=== PATIENT | female | born 2000 | race Asian ===

== ENCOUNTER 2025-02-09 09:39 | Inpatient (IN) ==
--- NOTE | 2025-02-09 10:23 | Emergency Department Note ---
Impression & Plan Hemoperitoneum, Hemorrhagic cyst of left ovary, Abdominal pain, Chest pain, Acute dyspnea ED Provider Note CHIEF COMPLAINT: Chest and abdominal pain HISTORY OF PRESENT ILLNESS: This 24-year-old female patient presents to the emergency department via ambulance for evaluation of chest and abdominal pain. The patient states she developed some upper abdominal pain last night before bed. She states she woke up this morning and went to class, generally feeling okay. While in class, she developed sudden onset of severe bilateral chest pain and difficulty breathing. The patient states the abdominal pain worsened. She then developed lightheadedness and dizziness and states her vision and hearing were going. She states she sat down on the ground and waited for the episode to pass, but asked her professor to call EMS, as she was still feeling unwell. [place] She states she is not currently on OCPs. She did take a Plan B about a week ago. Last menstrual period was 2 weeks ago. She states she thought the abdominal pain yesterday was similar nature to what she may experience prior to experiencing a menstrual period. She has not taken any medication for her symptoms. She denies any fever. No vomiting. No diarrhea or constipation. No abnormal vaginal bleeding or discharge. No urinary symptoms. No cough or recent upper respiratory infection. No leg pain or swelling. No history of DVT or PE. Patient states her pain is worse with lying flat and seems to improve with sitting upright. She states the pain is in the area of her ribs. History provided by: Patient REVIEW OF SYSTEMS: A 10 system review of systems was performed with positives and pertinent negatives listed in the history of present illness. All other systems were reviewed and are negative. ALLERGIES: NKDA PHYSICAL EXAM: VITALS: Vitals are noted on the nurse's note and reviewed by myself. GENERAL: This is a 24-year-old female, in no acute distress, nondiaphoretic, well-developed well-nourished. SKIN: The skin was without rashes, erythema, edema, or bruising. There is no tenting of the skin. Capillary refill less than 2 seconds. HEAD: Normocephalic atraumatic. EARS: External auditory canals clear, tympanic membranes pearly alexander without erythema or effusion bilaterally. No hemotympanum. Negative romero sign EYES: Pupils equal round and reactive to light and accommodation. Conjunctivae without injection, sclerae without icterus. Extraocular movements intact. NOSE: Patent, turbinates without inflammation or discharge. No sinus tenderness. MOUTH: Mucous membranes moist. Tonsils are not enlarged. Pharynx without erythema or exudate. Uvula midline. Airway patent. Tongue does not deviate. NECK: Supple without nuchal rigidity. No lymphadenopathy. Cervical spine is nontender. No JVD. CHEST: Exquisite tenderness to light palpation of the entire anterior and lateral chest wall and upper abdomen. Pt. unable to tolerate lying in a flat position for abdominal examination due to significant pain in her chest. HEART: Regular rate and rhythm without murmurs gallops or rubs. LUNGS: Clear to auscultation bilaterally without wheezes, rales or rhonchi. No retractions or accessory muscle use. ABDOMEN: Positive bowel sounds x 4. Soft, nontender, without masses or organomegaly. Deal sign negative. No guarding or rebound tenderness. MUSCULOSKELETAL: No muscle atrophy, erythema, or edema noted. Full range of motion without joint tenderness in all extremities. No tenderness to palpation. Normal gait. Strength 5/5 throughout. NEURO: Patient was alert and oriented to person place and time. No focal neurological deficits. An order was placed for continuous shingle trimmer. The monitor showed a normal sinus rhythm at a ventricular rate of 73 bpm, per my interpretation. EKG was reviewed by myself and found to be normal sinus rhythm at a rate of 80 beats per minute and per my interpretation reveals no ST elevation or depression. No T wave inversion. No prior EKG available for comparison. Imaging as interpreted by myself and the radiologist revealed moderate hemoperitoneum secondary to a ruptured hemorrhagic left ovarian cyst with active extravasation and approximately 9 x 4 cm hematoma in the pelvis, with radiologist interpretation as above. I agree with the radiologist's findings as based upon my independent interpretation. EMERGENCY DEPARTMENT COURSE: The patient was evaluated as above. The patient presents to the emergency department by ambulance due to chest and abdominal pain. The patient states that today in class, she had chest pain, shortness of breath, and presyncopal episode. Upon arrival to the emergency department, the patient is unable to get comfortable. She is complaining of severe pain in her chest and abdomen, worse when lying flat. [place] She states that she has not had history of DVT or PE. She did take Plan B about a week ago. IV access was obtained, labs were drawn. Patient was hydrated with IV fluids and medicated with acetaminophen. She was medicated with Zofran for nausea. Chest x-ray was completed and was negative for acute abnormality. Urine test is negative. CT angiogram of the chest and CT scan of the abdomen/pelvis was completed and reviewed by myself and radiologist as noted. CT scans are concerning for a ruptured left ovarian cyst with active extravasation and large hematoma in the pelvis. Labs reviewed. Per my interpretation, anemia with a hemoglobin of 11.0 and hematocrit of 32.3. No thrombocytopenia. Coags unremarkable. Renal, hepatic function and electrolytes without significant abnormality. Troponin less than 2.3. Lipase is 12. hCG is negative. Urinalysis appears contaminated. Urine drug screen is positive for MDMA. I discussed the case with Dr. Rosario, POPULATION GENETICIST on-call. She did evaluate the patient at the bedside. The patient continues to be very tender and peritonitic. She is unable to lie flat due to the pain and pressure sensation. She provided the patient with options to go to the operating room at this time versus a watch and wait approach and repeating the H&H. The patient would prefer to hold off at this time and have repeat labs drawn. Unfortunately, there was a delay of about 2 hours in obtaining the repeat labs. Repeat hemoglobin was 9.1. I did evaluate the patient again. Pt. is unable to tolerate any abdominal examination. Unable to lie flat due to severe pain. BP is now 103 systolic. I again discussed the case with Dr. Rosario. I updated her on the repeat labs, patient condition, as well as the blood pressure. She will be down to reevaluate the patient. Please see her dictation regarding final disposition and plan at this time. This visit is during a period of high volume and high acuity in the emergency department. I attest that I have personally reviewed the patient medication list. I attest that I have reviewed the patient's blood pressure and it was found to be normal GCS: 15 In the evaluation and treatment of this patient the following differential diagnoses were entertained: Cardiac ischemia, aortic dissection, pulmonary embolism, pneumothorax, pneumonia, pericarditis, myocarditis, esophageal rupture, GERD, cholecystitis, pancreatitis, musculoskeletal, as well as other pathologies. The chart was completed utilizing [employer] voice recognition software. Grammatical errors, random word insertions, pronoun errors, and incomplete sentences are an occasional consequence of this system due to software limitations, ambient noise, and hardware issues. Any formal questions or concerns about the content, text, or information contained within the body of this dictation should be directly addressed to the provider for clarification. Past Med/Surg History Problem List (Updated 02/09/25 @ 16:18 by Nichole Nation PA-C) Acute dyspnea (Acute) Chest pain (Acute) Hemorrhagic cyst of left ovary (Acute) Hemoperitoneum (Acute) Abdominal pain (Acute) Medical History No pertinent past medical history Social History Smoking Status: Current every day smoker Tobacco Type: E-cigarettes / Vaping Preferred Language: Syriac Feels Safe at Home: Yes Allergies Allergies Allergy/AdvReac Type Severity Reaction Status Date / Time No Known Allergies Allergy Unverified 02/09/25 14:54 Home Meds Home Medications Medication Instructions Recorded Confirmed No Known Home Medications 02/09/25 02/09/25 Results & Data (ED) Vital Signs Vital Signs - 24 hr 02/09/25 09:50 02/09/25 10:00 02/09/25 10:19 Temperature 36.5 C Temperature Source Oral Pulse Rate 64 73 Pulse Rate [Left Apical] Pulse Rate from SpO2 Sensor Pulse Rhythm Regular Pulse Strength Normal Respiratory Rate 24 Respiratory Effort / Characteristics Non-Labored Spontaneous Respiratory Depth Normal Respiratory Pattern Regular Blood Pressure 112/64 Blood Pressure [Right Arm] Blood Pressure Mean 80 Blood Pressure Mean [Right Arm] Blood Pressure Position Semi-fowlers Pulse Oximetry 98 100 Oxygen Delivery Method Room Air Room Air Sepsis Recent Fever Within 48 Hours No Sepsis New/Unexplained Change in Mental Status No Sepsis Action Taken by Nursing No Action Required 02/09/25 11:51 02/09/25 13:12 02/09/25 14:00 Temperature Temperature Source Pulse Rate 66 75 75 Pulse Rate [Left Apical] Pulse Rate from SpO2 Sensor 76 Pulse Rhythm Pulse Strength Respiratory Rate 19 24 Respiratory Effort / Characteristics Respiratory Depth Respiratory Pattern Blood Pressure 116/77 118/65 Blood Pressure [Right Arm] Blood Pressure Mean 90 82 Blood Pressure Mean [Right Arm] Blood Pressure Position Pulse Oximetry 100 100 Oxygen Delivery Method Room Air Room Air Sepsis Recent Fever Within 48 Hours Sepsis New/Unexplained Change in Mental Status Sepsis Action Taken by Nursing 02/09/25 14:42 02/09/25 15:49 Temperature Temperature Source Pulse Rate 64 Pulse Rate [Left Apical] 69 Pulse Rate from SpO2 Sensor Pulse Rhythm Pulse Strength Respiratory Rate 22 18 Respiratory Effort / Characteristics Non-Labored Spontaneous Respiratory Depth Normal Respiratory Pattern Blood Pressure 109/71 Blood Pressure [Right Arm] 109/63 Blood Pressure Mean 83 Blood Pressure Mean [Right Arm] 78 Blood Pressure Position Pulse Oximetry 99 100 Oxygen Delivery Method Room Air Room Air Sepsis Recent Fever Within 48 Hours Sepsis New/Unexplained Change in Mental Status Sepsis Action Taken by Nursing Laboratory Data 02/09/25 14:54 02/09/25 10:58 Lab Results 02/09/25 02/09/25 02/09/25 Range/Units 10:24 10:40 10:58 WBC 8.31 (4.8-10.8) K/ul RBC 3.37 L (4.20-5.40) M/uL Hgb 11.0 L (12.0-16.0) g/dl POC Hgb 12.6 (12.0-16.0) g/dl Hct 32.3 L (37.0-47.0) % POC Hct 37 (37-47) % MCV 95.8 (80.0-100.0) fL MCH 32.6 (25.0-34.0) pg MCHC 34.1 (32.0-36.0) g/dL RDW Std Deviation 45.5 (36.4-46.3) fL RDW Coeff of Capri 12.9 (11.5-14.5) % Plt Count 161 (130-400) K/uL MPV 11.0 (9.4-12.4) fL Immature Gran % (Auto) 0.4 % Neut % (Auto) 79.9 % Lymph % (Auto) 12.2 % Ellis % (Auto) 6.7 % Eos % (Auto) 0.6 % Baso % (Auto) 0.2 % Neut # (Auto) 6.64 H (1.40-6.50) K/uL Lymph # (Auto) 1.01 L (1.20-3.40) K/uL Ellis # (Auto) 0.56 (0.11-0.59) K/uL Eos # (Auto) 0.05 (0.00-0.50) K/uL Baso # (Auto) 0.02 (0.00-0.20) K/uL Immature Gran # (Auto) 0.03 (0.01-0.20) K/uL PT 11.3 (9.0-12.0) Seconds INR 1.1 (0.9-1.1) APTT 23 (21-31) Seconds PTT Ratio 0.8 POC Sodium 139 (135-144) mmol/L Sodium 137 (136-145) mmol/L POC Potassium 3.7 (3.3-5.0) mmol/L Potassium 3.6 (3.5-5.1) mmol/L POC Chloride 108 (101-112) mmol/L Chloride 107 (98-107) mmol/L Carbon Dioxide 23 (21-32) mmol/L POC Total CO2 22 L (24-31) mmol/L Anion Gap 7 (3-11) POC Anion Gap 14.0 L (16-25) mmol/L POC BUN 14 (7-18) mg/dl BUN 13 (6-23) mg/dl Creatinine 0.63 (0.6-1.2) mg/dl POC Creatinine 0.7 (0.6-1.3) mg/dl Est Cr Clr Drug Dosing 115.6 ml/min eGFR 128.55 BUN/Creatinine Ratio 20.6 H (10-20) Glucose 97 (70-99(Fasting)) mg/dl POC Glucose (other) 114 H (70-99) mg/dl Calcium 8.6 (8.6-10.3) mg/dl POC Ioniz Calcium Christin 1.18 (1.12-1.32) mmol/l Total Bilirubin 1.8 H (0.2-1.0) mg/dl AST 16 (13-39) U/L ALT 15 (7-52) U/L Alkaline Phosphatase 45 (34-104) U/L Troponin I High Sens < 2.3 (0-14) pg/ml Total Protein 6.5 (6.0-8.3) gm/dl Albumin 3.8 (3.4-5.0) gm/dl Globulin 2.7 (2.5-4.0) gm/dl Albumin/Globulin Ratio 1.4 (0.9-2) Lipase 12 (11-82) U/L HCG, Qual Negative (Negative) Urine Color Dark Yellow Urine Appearance Cloudy A (Clear) Urine pH 5.5 (4.5-7.5) Ur Specific Melvin 1.039 H (1.000-1.030) Urine Protein 1+ H (Negative) Urine Glucose (UA) Negative (Negative) Urine Ketones 1+ H (Negative) Urine Blood Negative (Negative) Urine Nitrite Negative (Negative) Urine Bilirubin 1+ H (Negative) Urine Urobilinogen Negative (Negative) Ur Leukocyte Esterase Trace H (Negative) Urine WBC (Auto) 6-10 H (0-5) /hpf Urine RBC (Auto) 0-2 (0-2) /hpf U Hyaline Cast (Auto) 3-5 H (0-2) /lpf U Epithel Cells (Auto) 6-10 H (0-2) /hpf Urine Bacteria (Auto) 1+ H (None Seen) Calcium Oxalate Crystal Present A (None Prsent) Urine Mucus Present A (None Prsent) POC Ur Test (NEG) Urine Comment Urine Opiates Screen Neg (Neg) Ur Methadone, Qual Neg (Neg) Urine Fentanyl Screen Neg (Neg) Urine Barbiturates Neg (Neg) Ur Phencyclidine (PCP) Neg (Neg) U Amphetamin/Meth Scrn Neg (Neg) MDMA (Ecstasy) Screen Pos H (Neg) U Benzodiazepines Scrn Neg (Neg) Ur Cocaine Metabolite Neg (Neg) U Marijuana (THC) Screen Neg (Neg) Blood Type Antibody Screen 02/09/25 02/09/25 02/09/25 Range/Units 11:22 12:38 14:54 WBC 8.58 (4.8-10.8) K/ul RBC 2.91 L (4.20-5.40) M/uL Hgb 9.1 L (12.0-16.0) g/dl POC Hgb (12.0-16.0) g/dl Hct 28.0 L (37.0-47.0) % POC Hct (37-47) % MCV 96.2 (80.0-100.0) fL MCH 31.3 (25.0-34.0) pg MCHC 32.5 (32.0-36.0) g/dL RDW Std Deviation 45.9 (36.4-46.3) fL RDW Coeff of Capri 13.1 (11.5-14.5) % Plt Count 147 (130-400) K/uL MPV 10.6 (9.4-12.4) fL Immature Gran % (Auto) 0.5 % Neut % (Auto) 78.1 % Lymph % (Auto) 16.0 % Ellis % (Auto) 4.8 % Eos % (Auto) 0.3 % Baso % (Auto) 0.3 % Neut # (Auto) 6.70 H (1.40-6.50) K/uL Lymph # (Auto) 1.37 (1.20-3.40) K/uL Ellis # (Auto) 0.41 (0.11-0.59) K/uL Eos # (Auto) 0.03 (0.00-0.50) K/uL Baso # (Auto) 0.03 (0.00-0.20) K/uL Immature Gran # (Auto) 0.04 (0.01-0.20) K/uL PT (9.0-12.0) Seconds INR (0.9-1.1) APTT (21-31) Seconds PTT Ratio POC Sodium (135-144) mmol/L Sodium (136-145) mmol/L POC Potassium (3.3-5.0) mmol/L Potassium (3.5-5.1) mmol/L POC Chloride (101-112) mmol/L Chloride (98-107) mmol/L Carbon Dioxide (21-32) mmol/L POC Total CO2 (24-31) mmol/L Anion Gap (3-11) POC Anion Gap (16-25) mmol/L POC BUN (7-18) mg/dl BUN (6-23) mg/dl Creatinine (0.6-1.2) mg/dl POC Creatinine (0.6-1.3) mg/dl Est Cr Clr Drug Dosing ml/min eGFR BUN/Creatinine Ratio (10-20) Glucose (70-99(Fasting)) mg/dl POC Glucose (other) (70-99) mg/dl Calcium (8.6-10.3) mg/dl POC Ioniz Calcium Christin (1.12-1.32) mmol/l Total Bilirubin (0.2-1.0) mg/dl AST (13-39) U/L ALT (7-52) U/L Alkaline Phosphatase (34-104) U/L Troponin I High Sens (0-14) pg/ml Total Protein (6.0-8.3) gm/dl Albumin (3.4-5.0) gm/dl Globulin (2.5-4.0) gm/dl Albumin/Globulin Ratio (0.9-2) Lipase (11-82) U/L HCG, Qual (Negative) Urine Color Urine Appearance (Clear) Urine pH (4.5-7.5) Ur Specific Melvin (1.000-1.030) Urine Protein (Negative) Urine Glucose (UA) (Negative) Urine Ketones (Negative) Urine Blood (Negative) Urine Nitrite (Negative) Urine Bilirubin (Negative) Urine Urobilinogen (Negative) Ur Leukocyte Esterase (Negative) Urine WBC (Auto) (0-5) /hpf Urine RBC (Auto) (0-2) /hpf U Hyaline Cast (Auto) (0-2) /lpf U Epithel Cells (Auto) (0-2) /hpf Urine Bacteria (Auto) (None Seen) Calcium Oxalate Crystal (None Prsent) Urine Mucus (None Prsent) POC Ur Test NEG (NEG) Urine Comment Urine Opiates Screen (Neg) Ur Methadone, Qual (Neg) Urine Fentanyl Screen (Neg) Urine Barbiturates (Neg) Ur Phencyclidine (PCP) (Neg) U Amphetamin/Meth Scrn (Neg) MDMA (Ecstasy) Screen (Neg) U Benzodiazepines Scrn (Neg) Ur Cocaine Metabolite (Neg) U Marijuana (THC) Screen (Neg) Blood Type A Positive Antibody Screen NEGATIVE Administered Medications Discontinued Medications Sodium Chloride (Nss) 1,000 mls @ 999 mls/hr IV .Q1H1M STA Stop: 02/09/25 11:14 Last Infusion: 02/09/25 11:28 Dose: Infused Documented By: Admin: 02/09/25 10:26 Dose: 999 mls/hr Documented By: Acetaminophen (Ofirmev) 1,000 mg in 100 mls @ 400 mls/hr IV NOW STA Stop: 02/09/25 10:28 Last Infusion: 02/09/25 11:28 Dose: Infused Documented By: Admin: 02/09/25 10:26 Dose: 400 mls/hr Documented By: MSG Ioversol (Optiray 320 125ml) 119 ml IV ONCE ONE Stop: 02/09/25 11:18 Last Admin: 02/09/25 11:17 Dose: 119 ml Documented By: NELLIE Ketorolac Tromethamine (Ketorolac 30 Mg/Ml Vial) 30 mg IV NOW STA Stop: 02/09/25 11:33 Last Admin: 02/09/25 11:50 Dose: 30 mg Documented By: MSG Morphine Sulfate (Morphine Sulfate 2 Mg/Ml Carp) 2 mg IV NOW STA Stop: 02/09/25 12:49 Last Admin: 02/09/25 13:07 Dose: 2 mg Documented By: MSG Ondansetron HCl (Ondansetron Inj 2 Mg/Ml 2 Ml Vial) 4 mg IV NOW STA Stop: 02/09/25 10:15 Last Admin: 02/09/25 10:26 Dose: 4 mg Documented By: MSG Imaging Data Radiologist's Impression: Chest X-Ray 02/09/25 10:14 XR chest 1V portable CLINICAL HISTORY: dyspnea, chest pain COMPARISON STUDY: None FINDINGS: Heart size and pulmonary vasculature are normal. No consolidation or pleural effusion. No pneumothorax. IMPRESSION: No acute findings. ACT 112: Negative or not required by law. Electronically signed by: Mac Claudio M.D. 02/09/2025 11:01 AM Abdomen/Pelvis CT 02/09/25 10:46 CT SCAN OF THE ABDOMEN AND PELVIS WITH IV CONTRAST CLINICAL HISTORY: Upper abdominal pain. COMPARISON STUDY: No priors. TECHNIQUE: Following the IV administration of 119 cc of Optiray 320, CT scan of the abdomen and pelvis is performed from the lung bases to the proximal femora. Images are reviewed in the axial, sagittal, and coronal planes. IV contrast was administered without complication. A dose lowering technique was utilized adhering to the principles of ALARA. FINDINGS: Lung bases: The heart is normal in size and without pericardial effusion. There are trace pleural effusions. No airspace consolidation is seen typical for pneumonia. Liver: The contrast-enhanced liver is normal in size, contour, and attenuation. Fatty infiltration is seen adjacent to the falciform ligament. There is no intrahepatic biliary ductal dilatation. The hepatic veins and portal veins are patent. Gallbladder: Unremarkable. Spleen: Normal in size and attenuation. Pancreas: Unremarkable. Adrenal glands: Unremarkable. Kidneys: The contrast enhanced kidneys are normal in size and without hydronephrosis. The kidneys enhance symmetrically. Abdominal vasculature: The abdominal aorta is normal in course and caliber. Bowel: There is mild to moderate colonic fecal retention. No bowel obstruction is seen. The appendix is normal as visualized. Peritoneum: No intraperitoneal free air is seen. There is a moderate volume of hemoperitoneum. Complex fluid in the pelvis is consistent with hematoma/blood products. Lymphadenopathy: None. Pelvic viscera: The bladder and uterus are normal as visualized. There is a 4.3 cm complex cystic lesion in the left adnexa on image [id number]. This shows foci of active extravasation on image #259, and there is large hematoma in the posterior pelvis which measures approximately 9 x 4 cm. Skeletal structures: No lytic or blastic lesions are seen. IMPRESSION: 1. There is a moderate volume of hemoperitoneum secondary to a ruptured hemorrhagic left ovarian cyst as above. 2. There is active extravasation, with an approximately 9 x 4 cm hematoma in the pelvis. 3. Trace pleural effusions. 4. Additional findings as above. ACT 112: Negative or not required by law. Electronically signed by: Chivo Munoz M.D. 02/09/2025 11:44 AM Chest CTA 02/09/25 10:46 CT angio chest PE protocol CT DOSE: 713.98 mGy.cm HISTORY: 24 years-old Female with chest pain, dyspnea, recent travel. Acute shortness of breath TECHNIQUE: Multiple CTA images of the chest were obtained after the intravenous administration of 119 ml Optiray. Coronal and sagittal MIPS were obtained from the axial data set and were submitted for review. All measurements were obtained according to NASCET criteria. A dose lowering technique was utilized adhering to the principles of ALARA. COMPARISON: CT abdomen and pelvis of same day FINDINGS: CTA: There is adequate opacification of the pulmonary arteries to the level of the segmental branches without convincing evidence of acute pulmonary embolism. Normal thoracic aorta.Heart size is normal. CT CHEST: No dominant thyroid nodule is seen. Residual thymic tissue in the anterior mediastinum. No pathologically adenopathy by CT size criteria. Trace pleural effusions. No pneumothorax or airspace consolidation. CT abdomen and pelvis dictated separately. Upper abdominal ascites is noted. Unremarkable soft tissues. The osseous structures appear intact. IMPRESSION: 1. No pulmonary emboli identified. 2. Trace pleural effusions with upper abdominal ascites. 3. No airspace consolidation typical for pneumonia. 4. Please refer to the same day CT abdomen and pelvis study for additional findings. ACT 112: Negative or not required by law. The above report was generated using voice recognition software. It may contain grammatical, syntax or spelling errors. Electronically signed by: Beto Garza M.D. 02/09/2025 11:41 AM Discharge Plan Visit Data Chief Complaint: Abdominal Pain Stated Complaint: SOB, R SIDE CHEST PAIN & AB PAIN ED Provider: Kaiden Maher ED Midlevel Provider: Nichole Nation Discharge Problem: Hemoperitoneum, Hemorrhagic cyst of left ovary, Abdominal pain, Chest pain, Acute dyspnea Patient Disposition: Admitted As Inpatient Condition: Fair Forms Stand Alone Forms: Korrio Prescriptions Prescriptions: No Action No Known Home Medications Referrals Referrals: [facility] [Primary Care Provider] -
[2025-02-09] MEDS: SODIUM CHLORIDE 0.9% 1,000 ML IV STA (10:26)
[2025-02-09] MEDS: ONDANSETRON INJ 2 MG/ML 2 ML VIAL IV STA (10:26)
[2025-02-09] MEDS: ACETAMINOPHEN 1,000 MG/100 ML VIAL IV STA (10:26)
--- NOTE | 2025-02-09 11:02 | XRay Report ---
XR chest 1V portable CLINICAL HISTORY: dyspnea, chest pain COMPARISON STUDY: None FINDINGS: Heart size and pulmonary vasculature are normal. No consolidation or pleural effusion. No p neumothorax. IMPRESSION: No acute findings. ACT 112: Negative or not required by law. Electronically signed by: Mac Claudio M.D. 02/09/2025 11:01 AM
[2025-02-09] MEDS: OPTIRAY 320 125ml IV ONE (11:17)
[2025-02-09 11:22] LABS: Appearance Urine Cloudy (Clear); Bacteria Urine Automated 1+ (None Seen); Glucose Urine UA Negative (Negative); RBC Urine Automated 0-2 /hpf (0-2)
[2025-02-09 11:33] LABS: Hematocrit (blood only) 32.3 % (37.0-47.0); Hemoglobin 11.0 g/dl (12.0-16.0); Immature Granulocytes # (auto) 0.03 K/uL (0.01-0.20); Immature Granulocytes % (auto) 0.4 %; Mean Corpuscular Hemoglobin 32.6 pg (25.0-34.0); Mean Corpuscular Volume 95.8 fL (80.0-100.0); Platelet Count 161 K/uL (130-400); RDW Standard Deviation 45.5 fL (36.4-46.3); Red Blood Count 3.37 M/uL (4.20-5.40); White Blood Count 8.31 K/ul (4.8-10.8)
[2025-02-09 11:42] LABS: Pregnancy Test, Serum Negative (Negative)
--- NOTE | 2025-02-09 11:43 | CT Scan Report ---
CT angio chest PE protocol CT DOSE: 713.98 mGy.cm HISTORY: 24 years-old Female with chest pain, dyspnea, recent travel. Acute shortness of breath TECHNIQUE: Multiple CTA images of the chest were obtained after the intravenous administration of 119 ml Optiray. Coronal and sagittal MIPS were obtained from the axial data set and were submitted for review. All measurements were obtained according to NASCET criteria. A dose lowering technique was u tilized adhering to the principles of ALARA. COMPARISON: CT abdomen and pelvis of same day FINDINGS: CTA: There is adequate opacification of the pulmonary arteries to the level of the segmental branches with out convincing evidence of acute pulmonary embolism. Normal thoracic aorta.Heart size is normal. CT CHEST: No dominant thyroid nodule is seen. Residual thymic tissue in the anterior mediastinum. No pathologic ally adenopathy by CT size criteria. Trace pleural effusions. No pneumothorax or airspace consolidat ion. CT abdomen and pelvis dictated separately. Upper abdominal ascites is noted. Unremarkable soft tissu es. The osseous structures appear intact. IMPRESSION: 1. No pulmonary emboli identified. 2. Trace pleural effusions with upper abdominal ascites. 3. No airspace consolidation typical for pneumonia. 4. Please refer to the same day CT abdomen and pelvis study for additional findings. ACT 112: Negative or not required by law. The above report was generated using voice recognition software. It may contain grammatical, syntax o r spelling errors. Electronically signed by: Beto Garza M.D. 02/09/2025 11:41 AM
--- NOTE | 2025-02-09 11:46 | CT Scan Report ---
CT SCAN OF THE ABDOMEN AND PELVIS WITH IV CONTRAST CLINICAL HISTORY: Upper abdominal pain. COMPARISON STUDY: No priors. TECHNIQUE: Following the IV administration of 119 cc of Optiray 320, CT scan of the abdomen and pelv is is performed from the lung bases to the proximal femora. Images are reviewed in the axial, sagitta l, and coronal planes. IV contrast was administered without complication. A dose lowering technique w as utilized adhering to the principles of ALARA. FINDINGS: Lung bases: The heart is normal in size and without pericardial effusion. There are trace pleural eff usions. No airspace consolidation is seen typical for pneumonia. Liver: The contrast-enhanced liver is normal in size, contour, and attenuation. Fatty infiltration is seen adjacent to the falciform ligament. There is no intrahepatic biliary ductal dilatation. The hep atic veins and portal veins are patent. Gallbladder: Unremarkable. Spleen: Normal in size and attenuation. Pancreas: Unremarkable. Adrenal glands: Unremarkable. Kidneys: The contrast enhanced kidneys are normal in size and without hydronephrosis. The kidneys enh ance symmetrically. Abdominal vasculature: The abdominal aorta is normal in course and caliber. Bowel: There is mild to moderate colonic fecal retention. No bowel obstruction is seen. The appendix is normal as visualized. Peritoneum: No intraperitoneal free air is seen. There is a moderate volume of hemoperitoneum. Comple x fluid in the pelvis is consistent with hematoma/blood products. Lymphadenopathy: None. Pelvic viscera: The bladder and uterus are normal as visualized. There is a 4.3 cm complex cystic les ion in the left adnexa on image 4-67. This shows foci of active extravasation on image #259, and ther e is large hematoma in the posterior pelvis which measures approximately 9 x 4 cm. Skeletal structures: No lytic or blastic lesions are seen. IMPRESSION: 1. There is a moderate volume of hemoperitoneum secondary to a ruptured hemorrhagic left ovarian cyst as above. 2. There is active extravasation, with an approximately 9 x 4 cm hematoma in the pelvis. 3. Trace pleural effusions. 4. Additional findings as above. ACT 112: Negative or not required by law. Electronically signed by: Chivo Munoz M.D. 02/09/2025 11:44 AM
[2025-02-09 11:48] LABS: Alanine Aminotransferase 15 U/L (7-52); Albumin Globulin Ratio 1.4 (0.9-2); Albumin Level 3.8 gm/dl (3.4-5.0); Alkaline Phosphatase 45 U/L (34-104); Anion Gap 7 (3-11); Bilirubin,Total 1.8 mg/dl (0.2-1.0); Blood Urea Nitrogen 13 mg/dl (6-23); Calcium 8.6 mg/dl (8.6-10.3); Carbon Dioxide 23 mmol/L (21-32); Chloride 107 mmol/L (98-107); Creatinine Clr Calc Pharmacy 115.6 ml/min; Globulin 2.7 gm/dl (2.5-4.0); Glucose 97 mg/dl (70-99(Fasting)); Lipase 12 U/L (11-82); Potassium 3.6 mmol/L (3.5-5.1); Sodium 137 mmol/L (136-145); Total Protein 6.5 gm/dl (6.0-8.3)
[2025-02-09] MEDS: KETOROLAC 30 MG/ML VIAL IV STA (11:50)
[2025-02-09 12:03] LABS: INR 1.1 (0.9-1.1); Partial Thromboplastin Time 23 Seconds (21-31); Prothrombin Time 11.3 Seconds (9.0-12.0)
[2025-02-09 12:47] LABS: Amphetamines+Metham, Urine Neg (Neg); MDMA (Ecstacy), Urine Pos (Neg); Marijuana, Urine Neg (Neg)
[2025-02-09] MEDS: MoRPHine SULFATE 2 MG/ML CARP IV STA (13:07)
--- NOTE | 2025-02-09 13:34 | History & Physical Report ---
Date of Service February 09, 2025 Assessment & Plan (1) Abdominal pain: Plan: 24-year-old G0 female presenting with abdominal pain radiating to her chest, difficulty with breathing, physical exam and CT of abdomen pelvis suggesting hemorrhagic left ovarian cyst, hemoperitoneum, Vital signs stable afebrile, H&H stable, Discussed option of operative laparoscopy, evacuation of blood clots from pelvis and abdomen, control of left ovarian bleeding with either cauterization of left ovary versus cystectomy versus oophorectomy if needed, we also did discuss option of observation, repeat H&H in the case of spontaneous resolution of bleeding, Patient desires to wait for few hours does not want to go to the OR now, Plan is to repeat CBC, monitor closely, pain management, and then decide, All questions were answered. (2) Hemoperitoneum: (3) Hemorrhagic cyst of left ovary: History of Present Illness Primary Care Provider: [facility] Patient is a 24-year-old G0 female who came to the ER with ambulance after feeling abdominal pain, chest pain, difficulty with breathing and passing out at the class at [facility]. She says she had intercourse last night and abdominal pain started after that but it was mild. This morning her pain was mild until she went to school where all of a sudden she started to have increased abdominal pain, chest pain, difficulty with breathing. She tried to stood up to leave you but then she fell on the floor. Her professor called ambulance and they brought her OK. She states since she came her pain is better and she is not feeling dizzy or lightheaded. She has been using bathroom and sitting up without dizziness. Her pain gets worse when she lays down flat. She denies vaginal bleeding, discharge. Her last period was about 2 weeks ago. She gets.'s every 3 weeks, last 20 days and light. She has been sexually active with same partner, they do not use condoms nor any other contraception. She states she sometimes uses Plan B last time she is Plan B was last week. Her test is negative here. She denies nausea vomiting, fever or chills, problems with urination or bowel movements. She denies any history of STDs. she has been to [employer] at [facility] and everything was normal. Patient History Medical History No pertinent past medical history Social History Smoking Status: Current every day smoker Tobacco Type: E-cigarettes / Vaping Preferred Language: Taiwanese Feels Safe at Home: Yes Review of Systems as per Subjective / HPI Physical Exam Constitutional: WD/WN, vitals as above well developed, well nourished and + acute distress ( She feels more painful when she lays down, looks better when she sits up) Gastrointestinal (Abdomen): normal bowel sounds, soft, nontender, no hepatosplenomegaly ( abd flat, tenderness on both lower quadrants, no rebound/ muscle rigidity) Results & Data Vital Signs (Past 12 Hours) Vital Signs Temp Pulse Resp BP Pulse Ox O2 Del Method 02/09/25 11:51 66 19 116/77 100 Room Air 02/09/25 10:19 100 Room Air 02/09/25 10:00 36.5 C 73 24 112/64 98 Room Air 02/09/25 09:50 64 Laboratory Results Lab Results 02/09/25 02/09/25 02/09/25 Range/Units 10:24 10:40 10:58 WBC 8.31 (4.8-10.8) K/ul RBC 3.37 L (4.20-5.40) M/uL Hgb 11.0 L (12.0-16.0) g/dl POC Hgb 12.6 (12.0-16.0) g/dl Hct 32.3 L (37.0-47.0) % POC Hct 37 (37-47) % MCV 95.8 (80.0-100.0) fL MCH 32.6 (25.0-34.0) pg MCHC 34.1 (32.0-36.0) g/dL RDW Std Deviation 45.5 (36.4-46.3) fL RDW Coeff of Capri 12.9 (11.5-14.5) % Plt Count 161 (130-400) K/uL MPV 11.0 (9.4-12.4) fL Immature Gran % (Auto) 0.4 % Neut % (Auto) 79.9 % Lymph % (Auto) 12.2 % [place] % (Auto) 6.7 % Eos % (Auto) 0.6 % Baso % (Auto) 0.2 % Neut # (Auto) 6.64 H (1.40-6.50) K/uL Lymph # (Auto) 1.01 L (1.20-3.40) K/uL [place] # (Auto) 0.56 (0.11-0.59) K/uL Eos # (Auto) 0.05 (0.00-0.50) K/uL Baso # (Auto) 0.02 (0.00-0.20) K/uL Immature Gran # (Auto) 0.03 (0.01-0.20) K/uL PT 11.3 (9.0-12.0) Seconds INR 1.1 (0.9-1.1) APTT 23 (21-31) Seconds PTT Ratio 0.8 POC Sodium 139 (135-144) mmol/L Sodium 137 (136-145) mmol/L POC Potassium 3.7 (3.3-5.0) mmol/L Potassium 3.6 (3.5-5.1) mmol/L POC Chloride 108 (101-112) mmol/L Chloride 107 (98-107) mmol/L Carbon Dioxide 23 (21-32) mmol/L POC Total CO2 22 L (24-31) mmol/L Anion Gap 7 (3-11) POC Anion Gap 14.0 L (16-25) mmol/L POC BUN 14 (7-18) mg/dl BUN 13 (6-23) mg/dl Creatinine 0.63 (0.6-1.2) mg/dl POC Creatinine 0.7 (0.6-1.3) mg/dl Est Cr Clr Drug Dosing 115.6 ml/min eGFR 128.55 BUN/Creatinine Ratio 20.6 H (10-20) Glucose 97 (70-99(Fasting)) mg/dl POC Glucose (other) 114 H (70-99) mg/dl Calcium 8.6 (8.6-10.3) mg/dl POC Ioniz Calcium Christin 1.18 (1.12-1.32) mmol/l Total Bilirubin 1.8 H (0.2-1.0) mg/dl AST 16 (13-39) U/L ALT 15 (7-52) U/L Alkaline Phosphatase 45 (34-104) U/L Troponin I High Sens < 2.3 (0-14) pg/ml Total Protein 6.5 (6.0-8.3) gm/dl Albumin 3.8 (3.4-5.0) gm/dl Globulin 2.7 (2.5-4.0) gm/dl Albumin/Globulin Ratio 1.4 (0.9-2) Lipase 12 (11-82) U/L HCG, Qual Negative (Negative) Urine Color Dark Yellow Urine Appearance Cloudy A (Clear) Urine pH 5.5 (4.5-7.5) Ur Specific Ages [place] 1.039 H (1.000-1.030) Urine Protein 1+ H (Negative) Urine Glucose (UA) Negative (Negative) Urine Ketones 1+ H (Negative) Urine Blood Negative (Negative) Urine Nitrite Negative (Negative) Urine Bilirubin 1+ H (Negative) Urine Urobilinogen Negative (Negative) Ur Leukocyte Esterase Trace H (Negative) Urine WBC (Auto) 6-10 H (0-5) /hpf Urine RBC (Auto) 0-2 (0-2) /hpf U Hyaline Cast (Auto) 3-5 H (0-2) /lpf U Epithel Cells (Auto) 6-10 H (0-2) /hpf Urine Bacteria (Auto) 1+ H (None Seen) Calcium Oxalate Crystal Present A (None Prsent) Urine Mucus Present A (None Prsent) POC Ur Test (NEG) Urine Comment Urine Opiates Screen Neg (Neg) Ur Methadone, Qual Neg (Neg) Urine Fentanyl Screen Neg (Neg) Urine Barbiturates Neg (Neg) Ur Phencyclidine (PCP) Neg (Neg) U Amphetamin/Meth Scrn Neg (Neg) MDMA (Ecstasy) Screen Pos H (Neg) U Benzodiazepines Scrn Neg (Neg) Ur Cocaine Metabolite Neg (Neg) U Marijuana (THC) Screen Neg (Neg) 02/09/25 Range/Units 11:22 WBC (4.8-10.8) K/ul RBC (4.20-5.40) M/uL Hgb (12.0-16.0) g/dl POC Hgb (12.0-16.0) g/dl Hct (37.0-47.0) % POC Hct (37-47) % MCV (80.0-100.0) fL MCH (25.0-34.0) pg MCHC (32.0-36.0) g/dL RDW Std Deviation (36.4-46.3) fL RDW Coeff of Capri (11.5-14.5) % Plt Count (130-400) K/uL MPV (9.4-12.4) fL Immature Gran % (Auto) % Neut % (Auto) % Lymph % (Auto) % [place] % (Auto) % Eos % (Auto) % Baso % (Auto) % Neut # (Auto) (1.40-6.50) K/uL Lymph # (Auto) (1.20-3.40) K/uL [place] # (Auto) (0.11-0.59) K/uL Eos # (Auto) (0.00-0.50) K/uL Baso # (Auto) (0.00-0.20) K/uL Immature Gran # (Auto) (0.01-0.20) K/uL PT (9.0-12.0) Seconds INR (0.9-1.1) APTT (21-31) Seconds PTT Ratio POC Sodium (135-144) mmol/L Sodium (136-145) mmol/L POC Potassium (3.3-5.0) mmol/L Potassium (3.5-5.1) mmol/L POC Chloride (101-112) mmol/L Chloride (98-107) mmol/L Carbon Dioxide (21-32) mmol/L POC Total CO2 (24-31) mmol/L Anion Gap (3-11) POC Anion Gap (16-25) mmol/L POC BUN (7-18) mg/dl BUN (6-23) mg/dl Creatinine (0.6-1.2) mg/dl POC Creatinine (0.6-1.3) mg/dl Est Cr Clr Drug Dosing ml/min eGFR BUN/Creatinine Ratio (10-20) Glucose (70-99(Fasting)) mg/dl POC Glucose (other) (70-99) mg/dl Calcium (8.6-10.3) mg/dl POC Ioniz Calcium Christin (1.12-1.32) mmol/l Total Bilirubin (0.2-1.0) mg/dl AST (13-39) U/L ALT (7-52) U/L Alkaline Phosphatase (34-104) U/L Troponin I High Sens (0-14) pg/ml Total Protein (6.0-8.3) gm/dl Albumin (3.4-5.0) gm/dl Globulin (2.5-4.0) gm/dl Albumin/Globulin Ratio (0.9-2) Lipase (11-82) U/L HCG, Qual (Negative) Urine Color Urine Appearance (Clear) Urine pH (4.5-7.5) Ur Specific Ages [place] (1.000-1.030) Urine Protein (Negative) Urine Glucose (UA) (Negative) Urine Ketones (Negative) Urine Blood (Negative) Urine Nitrite (Negative) Urine Bilirubin (Negative) Urine Urobilinogen (Negative) Ur Leukocyte Esterase (Negative) Urine WBC (Auto) (0-5) /hpf Urine RBC (Auto) (0-2) /hpf U Hyaline Cast (Auto) (0-2) /lpf U Epithel Cells (Auto) (0-2) /hpf Urine Bacteria (Auto) (None Seen) Calcium Oxalate Crystal (None Prsent) Urine Mucus (None Prsent) POC Ur Test NEG (NEG) Urine Comment Urine Opiates Screen (Neg) Ur Methadone, Qual (Neg) Urine Fentanyl Screen (Neg) Urine Barbiturates (Neg) Ur Phencyclidine (PCP) (Neg) U Amphetamin/Meth Scrn (Neg) MDMA (Ecstasy) Screen (Neg) U Benzodiazepines Scrn (Neg) Ur Cocaine Metabolite (Neg) U Marijuana (THC) Screen (Neg) Diagnostic Findings ABD/ PELVIS CT: Lung bases: The heart is normal in size and without pericardial effusion. There are trace pleural effusions. No airspace consolidation is seen typical for pneumonia. Liver: The contrast-enhanced liver is normal in size, contour, and attenuation. Fatty infiltration is seen adjacent to the falciform ligament. There is no intrahepatic biliary ductal dilatation. The hepatic veins and portal veins are patent. Gallbladder: Unremarkable. Spleen: Normal in size and attenuation. Pancreas: Unremarkable. Adrenal glands: Unremarkable. Kidneys: The contrast enhanced kidneys are normal in size and without hydronephrosis. The kidneys enhance symmetrically. Abdominal vasculature: The abdominal aorta is normal in course and caliber. Bowel: There is mild to moderate colonic fecal retention. No bowel obstruction is seen. The appendix is normal as visualized. Peritoneum: No intraperitoneal free air is seen. There is a moderate volume of hemoperitoneum. Complex fluid in the pelvis is consistent with hematoma/blood products. Lymphadenopathy: None. Pelvic viscera: The bladder and uterus are normal as visualized. There is a 4.3 cm complex cystic lesion in the left adnexa on image 4-67. This shows foci of active extravasation on image #259, and there is large hematoma in the posterior pelvis which measures approximately 9 x 4 cm. Skeletal structures: No lytic or blastic lesions are seen. IMPRESSION: 1. There is a moderate volume of hemoperitoneum secondary to a ruptured hemorrhagic left ovarian cyst as above. 2. There is active extravasation, with an approximately 9 x 4 cm hematoma in the pelvis. 3. Trace pleural effusions. (1) Abdominal pain Abdominal location: generalized Qualified Code(s): R10.84 - Generalized abdominal pain
--- NOTE | 2025-02-09 13:49 | Electrocardiogram Report ---
Test Reason : Blood Pressure : */* mmHG Vent. Rate : 80 BPM Atrial Rate : 80 BPM P-R Int : 124 ms QRS Dur : 104 ms QT Int : 388 ms P-R-T Axes : 81 75 50 degrees QTcB Int : 447 ms Normal sinus rhythm RSR' or QR pattern in V1 suggests right ventricular conduction delay Borderline ECG No previous ECGs available Confirmed by Hank Stinson [id number]) on 02/09/2025 1:49:00 PM Referred By: REFERRED SELF Confirmed By: Hank Stinson
[2025-02-09 15:21] LABS: Hematocrit (blood only) 28.0 % (37.0-47.0); Hemoglobin 9.1 g/dl (12.0-16.0); Immature Granulocytes # (auto) 0.04 K/uL (0.01-0.20); Immature Granulocytes % (auto) 0.5 %; Mean Corpuscular Hemoglobin 31.3 pg (25.0-34.0); Mean Corpuscular Volume 96.2 fL (80.0-100.0); Platelet Count 147 K/uL (130-400); RDW Standard Deviation 45.9 fL (36.4-46.3); Red Blood Count 2.91 M/uL (4.20-5.40); White Blood Count 8.58 K/ul (4.8-10.8)
[2025-02-09] MEDS ORDERED: MoRPHine SULFATE 2 MG/ML CARP IV PRN (16:02)
[2025-02-09] MEDS ORDERED: ONDANSETRON INJ 2 MG/ML 2 ML VIAL IV PRN (16:02)
[2025-02-09] MEDS ORDERED: ACETAMINOPHEN 1,000 MG/100 ML VIAL IV PRN (16:02)
--- NOTE | 2025-02-09 16:08 | Gynecologic Progress Note ---
Date of Service February 09, 2025 Subjective Patient is reevaluated She feel better, no pain when she is sitting or standing, pain is only when she lies down flat She got u and walked to BR without dizziness nor pain while I was watching, voided 300 ml Came back smiling, stated she feels much better H&H dropped but expected, still stable VSS Afebrile Prefers not to have surgery Discussed ths risks and what to expect from surgery Plan to admit, observe, recheck H&H in evening and overnight Patient agrees All questions were answered. Results & Data Vital Signs (Past 12 Hours) Vital Signs Temp Pulse Pulse Resp BP BP Pulse Ox 02/09/25 15:49 69 18 109/63 100 02/09/25 14:42 64 22 109/71 99 02/09/25 14:00 75 02/09/25 13:12 75 24 118/65 100 02/09/25 11:51 66 19 116/77 100 02/09/25 10:19 100 02/09/25 10:00 36.5 C 73 24 112/64 98 02/09/25 09:50 64 O2 Del Method 02/09/25 15:49 Room Air 02/09/25 14:42 Room Air 02/09/25 14:00 02/09/25 13:12 Room Air 02/09/25 11:51 Room Air 02/09/25 10:19 Room Air 02/09/25 10:00 Room Air 02/09/25 09:50
--- NOTE | 2025-02-09 20:54 | Gynecologic Progress Note ---
Date of Service February 09, 2025 Assessment & Plan Admission and Anticipated Discharge Date Admission Date: February 09, 2025 Subjective Patient is reevaluated. She states she feels much better compared to when she was in the ER. She does not have any pain. She has not taking any pain medication other than the last 2 mg morphine she took in the ER around 1:30 PM. She denies dizziness, chest pain, shortness of breath. She wants to use the bathroom but she states she can do it she is not dizzy or lightheaded. She and her partner are asking for a diet but required to be on clears until we find out that she does not need surgery. Plan to continue monitor closely, Repeat H&H and coags, All questions were answered. Results & Data Vital Signs (Past 12 Hours) Vital Signs Temp Pulse Pulse Resp BP BP Pulse Ox 02/09/25 20:00 37.1 C 55 L 14 99/50 L 100 02/09/25 19:23 62 15 107/58 L 99 02/09/25 18:19 56 L 18 102/55 L 100 02/09/25 18:17 62 02/09/25 18:06 60 19 99/54 L 99 02/09/25 17:30 60 19 100 02/09/25 17:06 63 20 99 02/09/25 16:00 58 L 19 100 02/09/25 15:49 69 18 109/63 100 02/09/25 14:42 64 22 109/71 99 02/09/25 14:00 75 02/09/25 13:12 75 24 118/65 100 02/09/25 11:51 66 19 116/77 100 02/09/25 10:19 100 02/09/25 10:00 36.5 C 73 24 112/64 98 02/09/25 09:50 64 O2 Del Method 02/09/25 20:00 Room Air 02/09/25 19:23 Room Air 02/09/25 18:19 Room Air 02/09/25 18:17 02/09/25 18:06 Room Air 02/09/25 17:30 Room Air 02/09/25 17:06 Room Air 02/09/25 16:00 Room Air 02/09/25 15:49 Room Air 02/09/25 14:42 Room Air 02/09/25 14:00 02/09/25 13:12 Room Air 02/09/25 11:51 Room Air 02/09/25 10:19 Room Air 02/09/25 10:00 Room Air 02/09/25 09:50
[2025-02-09 21:31] LABS: Fibrinogen 195 mg/dl (184-400)
[2025-02-09 21:34] LABS: INR 1.1 (0.9-1.1); Partial Thromboplastin Time 24 Seconds (21-31); Prothrombin Time 11.1 Seconds (9.0-12.0)
[2025-02-09 21:36] LABS: Hematocrit (blood only) 28.8 % (37.0-47.0); Hemoglobin 9.2 g/dl (12.0-16.0); Immature Granulocytes # (auto) 0.02 K/uL (0.01-0.20); Immature Granulocytes % (auto) 0.3 %; Mean Corpuscular Hemoglobin 31.0 pg (25.0-34.0); Mean Corpuscular Volume 97.0 fL (80.0-100.0); Platelet Count 156 K/uL (130-400); RDW Standard Deviation 45.8 fL (36.4-46.3); Red Blood Count 2.97 M/uL (4.20-5.40); White Blood Count 6.71 K/ul (4.8-10.8)
--- NOTE | 2025-02-09 22:23 | Gynecologic Progress Note ---
Date of Service February 09, 2025 Assessment & Plan Admission and Anticipated Discharge Date Admission Date: February 09, 2025 Subjective Repeat H&H stable Coags WNL Continue to monitor Results & Data Vital Signs (Past 12 Hours) Vital Signs Temp Pulse Pulse Resp BP BP Pulse Ox 02/09/25 20:00 37.1 C 55 L 14 99/50 L 100 02/09/25 19:23 62 15 107/58 L 99 02/09/25 18:19 56 L 18 102/55 L 100 02/09/25 18:17 62 02/09/25 18:06 60 19 99/54 L 99 02/09/25 17:30 60 19 100 02/09/25 17:06 63 20 99 02/09/25 16:00 58 L 19 100 02/09/25 15:49 69 18 109/63 100 02/09/25 14:42 64 22 109/71 99 02/09/25 14:00 75 02/09/25 13:12 75 24 118/65 100 02/09/25 11:51 66 19 116/77 100 O2 Del Method 02/09/25 20:00 Room Air 02/09/25 19:23 Room Air 02/09/25 18:19 Room Air 02/09/25 18:17 02/09/25 18:06 Room Air 02/09/25 17:30 Room Air 02/09/25 17:06 Room Air 02/09/25 16:00 Room Air 02/09/25 15:49 Room Air 02/09/25 14:42 Room Air 02/09/25 14:00 02/09/25 13:12 Room Air 02/09/25 11:51 Room Air
[2025-02-09] MEDS: IRON SUCROSE 200 MG in SODIUM CHLORIDE 0.9% 100 ML IV ONE (23:45)
[2025-02-10 06:07] LABS: Hematocrit (blood only) 22.7 % (37.0-47.0); Hemoglobin 7.5 g/dl (12.0-16.0); Immature Granulocytes # (auto) 0.01 K/uL (0.01-0.20); Immature Granulocytes % (auto) 0.2 %; Mean Corpuscular Hemoglobin 31.6 pg (25.0-34.0); Mean Corpuscular Volume 95.8 fL (80.0-100.0); Platelet Count 118 K/uL (130-400); RDW Standard Deviation 44.9 fL (36.4-46.3); Red Blood Count 2.37 M/uL (4.20-5.40); White Blood Count 5.39 K/ul (4.8-10.8)
[2025-02-10 06:27] LABS: RBC Morphology Unremarkable
[2025-02-10] MEDS ORDERED: SODIUM CHLORIDE 0.9% 100 ML IV PRN (08:11)
[2025-02-10] MEDS: LACTATED RINGER'S 1,000 ML IV ONE (08:34)
[2025-02-10] MEDS ORDERED: D5W AND LACTATED RINGERS 1,000 ML IV SCH (08:45)
--- NOTE | 2025-02-10 08:45 | Gynecologic Progress Note ---
Date of Service February 10, 2025 Assessment & Plan Admission and Anticipated Discharge Date Admission Date: February 09, 2025 Subjective Patient is seen and examined Feels well, better than yesterday, no complaints, states does not want surgery Eating her clear tray and smiling. Pain is 4/10, minimal for her and does not want pain meds, she has not taken any meds since yesterday afternoon in ER. It moved down to her pelvis, was upper abdomen yesterday Can lie down flat now without discomfort No CP/ SOB/ Dizziness/ N&V/ VB/ Leg pain Has been using BR with no dizziness Tolerating clears Vital Signs Temp Pulse Resp BP Pulse Ox O2 Del Method 02/10/25 05:00 37 C 58 L 14 101/50 L 100 Room Air 02/10/25 00:15 36.9 C 55 L 14 106/66 99 Room Air 02/10/25 00:00 37 C 60 16 109/59 L 100 Room Air 02/10/25 02/09/25 02/09/25 Range/Units 05:38 20:45 14:54 WBC 5.39 6.71 8.58 (4.8-10.8) K/ul RBC 2.37 L 2.97 L 2.91 L (4.20-5.40) M/uL Hgb 7.5 L 9.2 L 9.1 L (12.0-16.0) g/dl POC Hgb (12.0-16.0) g/dl Hct 22.7 L 28.8 L 28.0 L (37.0-47.0) % POC Hct (37-47) % MCV 95.8 97.0 96.2 (80.0-100.0) fL MCH 31.6 31.0 31.3 (25.0-34.0) pg MCHC 33.0 31.9 L 32.5 (32.0-36.0) g/dL RDW Std Deviation 44.9 45.8 45.9 (36.4-46.3) fL RDW Coeff of Capri 13.0 12.9 13.1 (11.5-14.5) % Plt Count 118 L 156 147 (130-400) K/uL MPV 10.4 10.7 10.6 (9.4-12.4) fL Immature Gran % (Auto) 0.2 0.3 0.5 % Neut % (Auto) 56.6 65.9 78.1 % Lymph % (Auto) 32.7 25.8 16.0 % [place] % (Auto) 8.2 6.4 4.8 % Eos % (Auto) 1.9 1.3 0.3 % Baso % (Auto) 0.4 0.3 0.3 % Neut # (Auto) 3.06 4.42 6.70 H (1.40-6.50) K/uL Lymph # (Auto) 1.76 1.73 1.37 (1.20-3.40) K/uL [place] # (Auto) 0.44 0.43 0.41 (0.11-0.59) K/uL Eos # (Auto) 0.10 0.09 0.03 (0.00-0.50) K/uL Baso # (Auto) 0.02 0.02 0.03 (0.00-0.20) K/uL Immature Gran # (Auto) 0.01 0.02 0.04 (0.01-0.20) K/uL RBC Morphology Unremarkable PT 11.1 (9.0-12.0) Seconds INR 1.1 (0.9-1.1) APTT 24 (21-31) Seconds PTT Ratio 0.9 Fibrinogen 195 (184-400) mg/dl POC Sodium (135-144) mmol/L Sodium (136-145) mmol/L POC Potassium (3.3-5.0) mmol/L Potassium (3.5-5.1) mmol/L POC Chloride (101-112) mmol/L Chloride (98-107) mmol/L Carbon Dioxide (21-32) mmol/L POC Total CO2 (24-31) mmol/L Anion Gap (3-11) POC Anion Gap (16-25) mmol/L POC BUN (7-18) mg/dl BUN (6-23) mg/dl Creatinine (0.6-1.2) mg/dl POC Creatinine (0.6-1.3) mg/dl Est Cr Clr Drug Dosing ml/min eGFR BUN/Creatinine Ratio (10-20) Glucose (70-99(Fasting)) mg/dl POC Glucose (other) (70-99) mg/dl Calcium (8.6-10.3) mg/dl POC Ioniz Calcium Christin (1.12-1.32) mmol/l Total Bilirubin (0.2-1.0) mg/dl AST (13-39) U/L ALT (7-52) U/L Alkaline Phosphatase (34-104) U/L Troponin I High Sens (0-14) pg/ml Total Protein (6.0-8.3) gm/dl Albumin (3.4-5.0) gm/dl Globulin (2.5-4.0) gm/dl Albumin/Globulin Ratio (0.9-2) Lipase (11-82) U/L HCG, Qual (Negative) Urine Color Urine Appearance (Clear) Urine pH (4.5-7.5) Ur Specific Jackson (1.000-1.030) Urine Protein (Negative) Urine Glucose (UA) (Negative) Urine Ketones (Negative) Urine Blood (Negative) Urine Nitrite (Negative) Urine Bilirubin (Negative) Urine Urobilinogen (Negative) Ur Leukocyte Esterase (Negative) Urine WBC (Auto) (0-5) /hpf Urine RBC (Auto) (0-2) /hpf U Hyaline Cast (Auto) (0-2) /lpf U Epithel Cells (Auto) (0-2) /hpf Urine Bacteria (Auto) (None Seen) Calcium Oxalate Crystal (None Prsent) Urine Mucus (None Prsent) POC Ur Test (NEG) Urine Comment Urine Opiates Screen (Neg) Ur Methadone, Qual (Neg) Urine Fentanyl Screen (Neg) Urine Barbiturates (Neg) Ur Phencyclidine (PCP) (Neg) U Amphetamin/Meth Scrn (Neg) Urine MDEA MDMA (Ecstasy) Screen (Neg) MDMA Urine MDMA U Benzodiazepines Scrn (Neg) Ur Cocaine Metabolite (Neg) U Marijuana (THC) Screen (Neg) Blood Type Antibody Screen 02/09/25 02/09/25 02/09/25 Range/Units 12:38 11:22 10:58 WBC 8.31 (4.8-10.8) K/ul RBC 3.37 L (4.20-5.40) M/uL Hgb 11.0 L (12.0-16.0) g/dl POC Hgb (12.0-16.0) g/dl Hct 32.3 L (37.0-47.0) % POC Hct (37-47) % MCV 95.8 (80.0-100.0) fL MCH 32.6 (25.0-34.0) pg MCHC 34.1 (32.0-36.0) g/dL RDW Std Deviation 45.5 (36.4-46.3) fL RDW Coeff of Capri 12.9 (11.5-14.5) % Plt Count 161 (130-400) K/uL MPV 11.0 (9.4-12.4) fL Immature Gran % (Auto) 0.4 % Neut % (Auto) 79.9 % Lymph % (Auto) 12.2 % [place] % (Auto) 6.7 % Eos % (Auto) 0.6 % Baso % (Auto) 0.2 % Neut # (Auto) 6.64 H (1.40-6.50) K/uL Lymph # (Auto) 1.01 L (1.20-3.40) K/uL [place] # (Auto) 0.56 (0.11-0.59) K/uL Eos # (Auto) 0.05 (0.00-0.50) K/uL Baso # (Auto) 0.02 (0.00-0.20) K/uL Immature Gran # (Auto) 0.03 (0.01-0.20) K/uL RBC Morphology PT 11.3 (9.0-12.0) Seconds INR 1.1 (0.9-1.1) APTT 23 (21-31) Seconds PTT Ratio 0.8 Fibrinogen (184-400) mg/dl POC Sodium (135-144) mmol/L Sodium 137 (136-145) mmol/L POC Potassium (3.3-5.0) mmol/L Potassium 3.6 (3.5-5.1) mmol/L POC Chloride (101-112) mmol/L Chloride 107 (98-107) mmol/L Carbon Dioxide 23 (21-32) mmol/L POC Total CO2 (24-31) mmol/L Anion Gap 7 (3-11) POC Anion Gap (16-25) mmol/L POC BUN (7-18) mg/dl BUN 13 (6-23) mg/dl Creatinine 0.63 (0.6-1.2) mg/dl POC Creatinine (0.6-1.3) mg/dl Est Cr Clr Drug Dosing 115.6 ml/min eGFR 128.55 BUN/Creatinine Ratio 20.6 H (10-20) Glucose 97 (70-99(Fasting)) mg/dl POC Glucose (other) (70-99) mg/dl Calcium 8.6 (8.6-10.3) mg/dl POC Ioniz Calcium Christin (1.12-1.32) mmol/l Total Bilirubin 1.8 H (0.2-1.0) mg/dl AST 16 (13-39) U/L ALT 15 (7-52) U/L Alkaline Phosphatase 45 (34-104) U/L Troponin I High Sens < 2.3 (0-14) pg/ml Total Protein 6.5 (6.0-8.3) gm/dl Albumin 3.8 (3.4-5.0) gm/dl Globulin 2.7 (2.5-4.0) gm/dl Albumin/Globulin Ratio 1.4 (0.9-2) Lipase 12 (11-82) U/L HCG, Qual Negative (Negative) Urine Color Urine Appearance (Clear) Urine pH (4.5-7.5) Ur Specific Jackson (1.000-1.030) Urine Protein (Negative) Urine Glucose (UA) (Negative) Urine Ketones (Negative) Urine Blood (Negative) Urine Nitrite (Negative) Urine Bilirubin (Negative) Urine Urobilinogen (Negative) Ur Leukocyte Esterase (Negative) Urine WBC (Auto) (0-5) /hpf Urine RBC (Auto) (0-2) /hpf U Hyaline Cast (Auto) (0-2) /lpf U Epithel Cells (Auto) (0-2) /hpf Urine Bacteria (Auto) (None Seen) Calcium Oxalate Crystal (None Prsent) Urine Mucus (None Prsent) POC Ur Test NEG (NEG) Urine Comment Urine Opiates Screen (Neg) Ur Methadone, Qual (Neg) Urine Fentanyl Screen (Neg) Urine Barbiturates (Neg) Ur Phencyclidine (PCP) (Neg) U Amphetamin/Meth Scrn (Neg) Urine MDEA MDMA (Ecstasy) Screen (Neg) MDMA Urine MDMA U Benzodiazepines Scrn (Neg) Ur Cocaine Metabolite (Neg) U Marijuana (THC) Screen (Neg) Blood Type A Positive Antibody Screen NEGATIVE 02/09/25 02/09/25 Range/Units 10:40 10:24 WBC (4.8-10.8) K/ul RBC (4.20-5.40) M/uL Hgb (12.0-16.0) g/dl POC Hgb 12.6 (12.0-16.0) g/dl Hct (37.0-47.0) % POC Hct 37 (37-47) % MCV (80.0-100.0) fL MCH (25.0-34.0) pg MCHC (32.0-36.0) g/dL RDW Std Deviation (36.4-46.3) fL RDW Coeff of Capri (11.5-14.5) % Plt Count (130-400) K/uL MPV (9.4-12.4) fL Immature Gran % (Auto) % Neut % (Auto) % Lymph % (Auto) % [place] % (Auto) % Eos % (Auto) % Baso % (Auto) % Neut # (Auto) (1.40-6.50) K/uL Lymph # (Auto) (1.20-3.40) K/uL [place] # (Auto) (0.11-0.59) K/uL Eos # (Auto) (0.00-0.50) K/uL Baso # (Auto) (0.00-0.20) K/uL Immature Gran # (Auto) (0.01-0.20) K/uL RBC Morphology PT (9.0-12.0) Seconds INR (0.9-1.1) APTT (21-31) Seconds PTT Ratio Fibrinogen (184-400) mg/dl POC Sodium 139 (135-144) mmol/L Sodium (136-145) mmol/L POC Potassium 3.7 (3.3-5.0) mmol/L Potassium (3.5-5.1) mmol/L POC Chloride 108 (101-112) mmol/L Chloride (98-107) mmol/L Carbon Dioxide (21-32) mmol/L POC Total CO2 22 L (24-31) mmol/L Anion Gap (3-11) POC Anion Gap 14.0 L (16-25) mmol/L POC BUN 14 (7-18) mg/dl BUN (6-23) mg/dl Creatinine (0.6-1.2) mg/dl POC Creatinine 0.7 (0.6-1.3) mg/dl Est Cr Clr Drug Dosing ml/min eGFR BUN/Creatinine Ratio (10-20) Glucose (70-99(Fasting)) mg/dl POC Glucose (other) 114 H (70-99) mg/dl Calcium (8.6-10.3) mg/dl POC Ioniz Calcium Christin 1.18 (1.12-1.32) mmol/l Total Bilirubin (0.2-1.0) mg/dl AST (13-39) U/L ALT (7-52) U/L Alkaline Phosphatase (34-104) U/L Troponin I High Sens (0-14) pg/ml Total Protein (6.0-8.3) gm/dl Albumin (3.4-5.0) gm/dl Globulin (2.5-4.0) gm/dl Albumin/Globulin Ratio (0.9-2) Lipase (11-82) U/L HCG, Qual (Negative) Urine Color Dark Yellow Urine Appearance Cloudy A (Clear) Urine pH 5.5 (4.5-7.5) Ur Specific Jackson 1.039 H (1.000-1.030) Urine Protein 1+ H (Negative) Urine Glucose (UA) Negative (Negative) Urine Ketones 1+ H (Negative) Urine Blood Negative (Negative) Urine Nitrite Negative (Negative) Urine Bilirubin 1+ H (Negative) Urine Urobilinogen Negative (Negative) Ur Leukocyte Esterase Trace H (Negative) Urine WBC (Auto) 6-10 H (0-5) /hpf Urine RBC (Auto) 0-2 (0-2) /hpf U Hyaline Cast (Auto) 3-5 H (0-2) /lpf U Epithel Cells (Auto) 6-10 H (0-2) /hpf Urine Bacteria (Auto) 1+ H (None Seen) Calcium Oxalate Crystal Present A (None Prsent) Urine Mucus Present A (None Prsent) POC Ur Test (NEG) Urine Comment Urine Opiates Screen Neg (Neg) Ur Methadone, Qual Neg (Neg) Urine Fentanyl Screen Neg (Neg) Urine Barbiturates Neg (Neg) Ur Phencyclidine (PCP) Neg (Neg) U Amphetamin/Meth Scrn Neg (Neg) Urine MDEA Pending MDMA (Ecstasy) Screen Pos H (Neg) MDMA Pending Urine MDMA Pending U Benzodiazepines Scrn Neg (Neg) Ur Cocaine Metabolite Neg (Neg) U Marijuana (THC) Screen Neg (Neg) Blood Type Antibody Screen PE: General: Alert, orientedx3, NAD CVS: S1S2 RRR Lungs: CTAB Abd: soft, flat, less tender than before, ND, BS+ No VB Ext: NT, no edema, She got up while I was in the room, with no difficulty, and no symptoms, still smiling AP: 24 yo female with Hemorrhagic CL, Hemoperitoneum VSS Afebrile clinically doing well Has not required pain meds, able to ambulate and use BR with no symptoms Order coags, T&Cross Continue to monitor closely Results & Data Vital Signs (Past 12 Hours) Vital Signs Temp Pulse Resp BP Pulse Ox O2 Del Method 02/10/25 05:00 37 C 58 L 14 101/50 L 100 Room Air 02/10/25 00:15 36.9 C 55 L 14 106/66 99 Room Air 02/10/25 00:00 37 C 60 16 109/59 L 100 Room Air
[2025-02-10] MEDS: diphenhydrAMINE Capsule 25 MG CAP PO ONE (09:08)
[2025-02-10] MEDS: ACETAMINOPHEN 325 MG TAB PO PRN (09:08)
[2025-02-10 09:32] LABS: INR 1.1 (0.9-1.1); Partial Thromboplastin Time 29 Seconds (21-31); Prothrombin Time 11.1 Seconds (9.0-12.0)
[2025-02-10 09:40] LABS: Fibrinogen 227 mg/dl (184-400)
[2025-02-10] MEDS ORDERED: MoRPHine SULFATE 4 MG/ML 1 ML CARP\\VIAL IV PRN (13:15)
[2025-02-10 16:01] LABS: Hematocrit (blood only) 27.1 % (37.0-47.0); Hemoglobin 9.2 g/dl (12.0-16.0); Immature Granulocytes # (auto) 0.02 K/uL (0.01-0.20); Immature Granulocytes % (auto) 0.4 %; Mean Corpuscular Hemoglobin 31.8 pg (25.0-34.0); Mean Corpuscular Volume 93.8 fL (80.0-100.0); Platelet Count 111 K/uL (130-400); RDW Standard Deviation 47.9 fL (36.4-46.3); Red Blood Count 2.89 M/uL (4.20-5.40); White Blood Count 4.96 K/ul (4.8-10.8)
--- NOTE | 2025-02-10 17:50 | Gynecologic Progress Note ---
Date of Service February 10, 2025 Assessment & Plan Admission and Anticipated Discharge Date Admission Date: February 09, 2025 Subjective Patient wants to go home. She states she feels well no pain no blood tenderness. She ate lunch and dinner and kept down without nausea vomiting. She has been ambulating and using bathroom without dizziness. She has received 1 unit of packed red blood cells and her H&H increased appropriately. Discussed contraception patient Has not been on any med contraceptives, she has been sexually active without protection. We discussed options and ovarian suppression with oral contraceptives. She wants to start oral contraceptives. No personal or family history of DVT, PE, no personal history of migraines. She vapes occasionally. Discussed risk of increased blood clots, DVT, PE, stroke with smoking and control use recommended to quit. Discussed how to use and what to expect from control pills. Discussed when to call and follow-up in office. All questions were answered. Results & Data Vital Signs (Past 12 Hours) Vital Signs Temp Pulse Pulse Pulse Resp BP BP 02/10/25 15:15 36.8 C 60 20 96/55 L 02/10/25 13:28 36.7 C 67 91/51 L 02/10/25 13:00 36.5 C 77 21 98/51 L 02/10/25 11:59 36.7 C 58 L 16 87/55 L 02/10/25 11:28 36.7 C 63 20 91/44 L 02/10/25 10:58 36.7 C 56 L 17 93/47 L 02/10/25 10:43 36.8 C 74 19 110/42 L 02/10/25 10:20 36.7 C 64 19 98/49 L 02/10/25 10:05 36.7 C 74 20 97/53 L 02/10/25 08:45 59 L 95/51 L 02/10/25 07:25 36.8 C 52 L 20 95/59 L Pulse Ox O2 Del Method 02/10/25 15:15 99 Room Air 02/10/25 13:28 99 02/10/25 13:00 98 02/10/25 11:59 99 02/10/25 11:28 100 02/10/25 10:58 100 02/10/25 10:43 02/10/25 10:20 100 02/10/25 10:05 100 Room Air 02/10/25 08:45 02/10/25 07:25 99 Room Air
[2025-02-12 12:42] LABS: MDA negative; MDEA negative; MDMA (Ecstasy) Urine, Confirm negative
== END 2025-02-10 18:10 | disposition home or self-care (01) | DRG 760 ==
LOC: ED 09:39 → 4E1 16:02